=== PATIENT | male | born 1945 | race Caucasian/White ===

== ENCOUNTER → 2018-05-22 | Outpatient (CLI) | payer MEDICARE ==
--- NOTE | 2018-05-22 16:00 | KCIC ---
Renal sonography Clinical indications: Chronic kidney disease, stage III. FINDINGS: The longitudinal AP and transverse dimensions of the right kidney are 10.8 cm and 5.0 cm and 5.2 cm respectively. The longitudinal and AP and transverse dimensions of the left kidney are 10.0 cm and 5.0 cm and 5.6 cm respectively. No hydronephrosis or renal mass or perinephric fluid collection is seen on either side. The urinary bladder is empty. The patient voided prior to the exam. IMPRESSION: No hydronephrosis. Electronically signed by: Nate Gamez MD (05/22/2018 3:57 PM) [place] [id number]
== END | disposition home or self-care (01) ==
LOC: KCIC US 09:35
PROVIDERS: ATTEND Internal Medicine Nephrology
DX: N18.3 Chronic kidney disease, stage 3 (moderate) (principal)
CPT/HCPCS: 76770